=== PATIENT | female | born 1990 | race Caucasian/White ===

== ENCOUNTER → 2018-10-25 | Outpatient (CLI) | payer BC ==
[2018-10-25 14:05] LABS: BASO # 0.1 (0.02-0.10); EOS # 0.2 (0.04-0.40); EOS % 3.1 % (1.0-5.0); HEMATOCRIT 42.5 % (37.0-47.0); HEMOGLOBIN 13.7 g/dL (12.5-16.0); LYMPH# 2.4 (1.50-4.00); MEAN CELL VOLUME 85 fl (78-100); MEAN CORPUSCULAR HEMOGLOBIN 27 pg (27-31); MEAN CORPUSCULAR HGB CONC 32 g/dL (33-37); MEAN PLATELET VOLUME 10.4 fl (7.4-10.4); MONO # 0.7 (0.20-0.80); NEU # 4.4 (1.40-6.50); PLATELET COUNT 275 K/mm3 (130-400); RED CELL DISTRIBUTION WIDTH 12.9 % (11.5-14.5); WHITE BLOOD COUNT 7.8 K/mm3 (4.8-10.8)
== END ==
LOC: LAB 13:53
PROVIDERS: Family Medicine
DX: Z00.00 Encounter for general adult medical examination without abnormal findings (principal); Z13.220 Encounter for screening for lipoid disorders; R53.83 Other fatigue

== ENCOUNTER → 2019-03-17 | Outpatient (CLI) | payer BC | LOC: LAB 11:04 | DX: L08.9 Local infection of the skin and subcutaneous tissue, unspecified (principal) ==

== ENCOUNTER → 2020-02-01 | Outpatient (CLI) | payer BC | LOC: LAB 07:49 | DX: J02.9 Acute pharyngitis, unspecified (principal); Z20.828 Contact with and (suspected) exposure to other viral communicable diseases ==

== ENCOUNTER → 2020-03-05 | Outpatient (CLI) | payer BC | LOC: LAB 17:42 | DX: U07.1 COVID-19 (principal) ==

== ENCOUNTER 2021-03-13 04:04 | Emergency (ER) | payer BC ==
[~2021-03-13] VITALS: Ht 177.8 cm; Wt 104.5 kg
[2021-03-13 04:15] VITALS: BP 127/78
[2021-03-13] MEDS ORDERED: ZOLOFT 50MG50 MG PO (04:21)
[2021-03-13 05:09] LABS: BASO # 0.03 K/mm3 (0.02-0.10); EOS # 0.11 K/mm3 (0.04-0.40); EOS % 1.3 % (1.0-5.0); HEMATOCRIT 40.5 % (37.0-47.0); LYMPH# 0.83 K/mm3 (1.50-4.00); MEAN CELL VOLUME 78 fl (78-100); MEAN CORPUSCULAR HEMOGLOBIN 25 pg (27-31); MEAN CORPUSCULAR HGB CONC 32 g/dL (33-37); MONO # 0.62 K/mm3 (0.20-0.80); NEU # 6.75 K/mm3 (1.40-6.50); PLATELET COUNT 309 K/mm3 (130-400); RED BLOOD COUNT 5.18 M/mm3 (4.10-5.30); RED CELL DISTRIBUTION WIDTH 14.6 % (11.5-14.5); WHITE BLOOD COUNT 8.4 K/mm3 (4.8-10.8)
[2021-03-13 05:18] LABS: ALBUMIN 4.1 g/dL (3.5-5.0); POTASSIUM 3.8 mmol/L (3.5-5.1)
[2021-03-13 05:19] LABS: CALCIUM 9.2 mg/dL (8.3-10.5)
[2021-03-13 05:21] LABS: TOTAL PROTEIN 7.4 g/dL (6.4-8.3)
[2021-03-13 05:22] LABS: TOTAL BILIRUBIN 0.5 mg/dL (0.2-1.2)
[2021-03-13] MEDS ORDERED: MORGIDOX 1X100100 MG PO (07:56)
[2021-03-13] MEDS ORDERED: PREDNISONE20 M1 PO (07:56)
[2021-03-13] MEDS ORDERED: PROAIR HFA0.09 MG/AC IH (07:58)
== END 2021-03-13 08:05 | disposition home or self-care (01) ==
LOC: ED 04:04
PROVIDERS: Nurse Practitioner
DX: U07.1 COVID-19 (principal); J20.9 Acute bronchitis, unspecified; E66.9 Obesity, unspecified; F32.A Depression, unspecified; Z68.33 Body mass index [BMI] 33.0-33.9, adult; Z73.0 Burn-out; Z79.899 Other long term (current) drug therapy

== ENCOUNTER → 2021-03-19 | Outpatient (CLI) | payer BC ==
[~2021-03-19] MED LIST: MORGIDOX 1X100100 MG PO; PREDNISONE20 M1 PO; PROAIR HFA0.09 MG/AC IH; ZOLOFT 50MG50 MG PO
[2021-03-19 16:47] LABS: BASO # 0.03 K/mm3 (0.02-0.10); EOS # 0.14 K/mm3 (0.04-0.40); EOS % 1.7 % (1.0-5.0); HEMATOCRIT 44.1 % (37.0-47.0); HEMOGLOBIN 14.1 g/dL (12.5-16.0); LYMPH# 2.54 K/mm3 (1.50-4.00); MEAN CELL VOLUME 78 fl (78-100); MEAN CORPUSCULAR HEMOGLOBIN 25 pg (27-31); MEAN CORPUSCULAR HGB CONC 32 g/dL (33-37); MEAN PLATELET VOLUME 10.1 fl (7.4-10.4); MONO # 0.67 K/mm3 (0.20-0.80); NEU # 4.87 K/mm3 (1.40-6.50); PLATELET COUNT 400 K/mm3 (130-400); RED BLOOD COUNT 5.65 M/mm3 (4.10-5.30); RED CELL DISTRIBUTION WIDTH 14.6 % (11.5-14.5); WHITE BLOOD COUNT 8.3 K/mm3 (4.8-10.8)
[2021-03-19 16:51] LABS: ALBUMIN 4.1 g/dL (3.5-5.0); POTASSIUM 4.2 mmol/L (3.5-5.1)
[2021-03-19 16:54] LABS: TOTAL PROTEIN 6.8 g/dL (6.4-8.3)
[2021-03-19 16:56] LABS: TOTAL BILIRUBIN 0.4 mg/dL (0.2-1.2)
[2021-03-19 17:21] LABS: D-DIMER 0.21 mg/L FEU (0.15-0.50)
== END ==
LOC: RAD 15:11 → LAB 15:11
PROVIDERS: Nurse Practitioner Family
DX: U07.1 COVID-19 (principal)
CPT/HCPCS: Q9967